=== PATIENT | male | born 1980 | race Caucasian/White ===

== ENCOUNTER 2022-09-22 16:12 | Outpatient (CLI) | payer BC, SELFPAY ==
--- NOTE | ~2022-09-22 | XR_ITS ---
EXAM: XR sinus min 3V DATE: 09/22/2022 16:28 HISTORY: chronic lt side drainage . COMPARISON: None available. FINDINGS: Normal mineralization. No fracture or dislocation. No lytic or blastic lesion. Opacificati on in the left frontal, ethmoid and maxillary sinuses. No erosion or periosteal change. Soft tissues within normal limits. IMPRESSION: Likely paranasal sinus disease in an OMU pattern, consider CT of the sinuses for further evaluation. Reviewed, dictated and finalized at location K. ESTING CONTRACTOR IMPRESSION: Likely paranasal sinus disease in an OMU pattern, consider CT of th e sinuses for further evaluation.
== END 2022-09-22 16:13 | disposition home or self-care (01) ==
LOC: ANHBWCIMG 16:14
PROVIDERS: PCP Family Medicine; Visit Provider Family Medicine
DX: J32.9 Chronic sinusitis, unspecified (principal)
CPT/HCPCS: 70220

== ENCOUNTER 2023-04-23 15:24 | Outpatient (CLI) | payer OTHER, SELFPAY ==
--- NOTE | ~2023-04-23 | XR_ITS ---
EXAMINATION: XR wrist RT min 3V DATE: 04/23/2023 15:44 INDICATION: Unspecified injury of right wrist and hand. TECHNIQUE: 4 views of right wrist were obtained. COMPARISON: None. FINDINGS: There is a nondisplaced transverse fracture of scaphoid waist. Joint spaces are normal. IMPRESSION: 1. Nondisplaced transverse fracture of scaphoid waist. Reviewed, dictated and finalized at location E.
== END 2023-04-23 15:25 | disposition home or self-care (01) ==
LOC: ANHASCIMG 15:26 → ANHBWCIMG 15:29
PROVIDERS: PCP Family Medicine; Visit Provider Nurse Practitioner Adult Health
DX: S69.91XA Unspecified injury of right wrist, hand and finger(s), initial encounter (principal); X58.XXXA Exposure to other specified factors, initial encounter
CPT/HCPCS: 73110

== ENCOUNTER → 2023-08-04 14:58 | Outpatient (CLI) | payer OTHER, SELFPAY ==
--- NOTE | ~2023-08-04 | CT_ITS ---
EXAMINATION: CT sinus wo con DATE: 08/04/2023 15:09 INDICATION: Chronic sinusitis TECHNIQUE: Computed tomography (CT) of the paranasal sinuses was performed without intravenous contra st. The dose-length product was 416.73 mGy-cm. Automated exposure control and iterative reconstructio n technique were employed. COMPARISON: No prior studies for comparison. FINDINGS: There is mucosal thickening of the frontal, maxillary, sphenoid and ethmoid sinuses, more s o on the left. There is occlusion of the left ostiomeatal unit. Mastoids are pneumatized. IMPRESSION: 1. Severe sinusitis, more so on the left side with complete opacification of the left frontal, ethmoi d, sphenoid and maxillary sinuses. Reviewed, dictated and finalized at location L. IMPRESSION: 1. Severe sinusitis, more so on the left side with complete opacification of th e left frontal, ethmoid, sphenoid and maxillary sinuses.
== END ==
PROVIDERS: PCP Family Medicine; Visit Provider Otolaryngology
DX: J32.9 Chronic sinusitis, unspecified (principal)
CPT/HCPCS: 70486

== ENCOUNTER 2023-09-21 03:04 | Day surgery (SDC) | payer OTHER, SELFPAY ==
[2023-09-17 14:09] VITALS: BMI 27.0
--- NOTE | 2023-09-17 14:10 | PC.NURSE ---
Report to the Outpatient Waiting Room, entrance under the green pavilion located off [facility], at time _0600_ on date _[id number]_. Planned Procedure Time: _0730_. Time changes happen often and if your time is changed the preop area will call you the afternoon before. - You and your visitor will be asked to self-screen and do not enter if you have any COVID symptoms. - A mask is optional within the hospital at this time. Patients may have clear liquids (water, carbonated beverages, clear teas, apple juice) until 3 hours prior to surgery with a maximum of 20 ounces. - No food from midnight until time of surgery Take the following medications with a SIP of water the morning of surgery: ___Steroids if still taking. DO NOT STOP ANY OF YOUR OTHER PRESCRIPTION MEDICATIONS PRIOR TO SURGERY ?EXCEPT THE FOLLOWING Medications to discontinue per physician Stop supplements now. Date to take last dose Please no make-up, nail malay, hairspray, perfume, deodorant, or body powder the day of surgery. No jewelry (including any body piercings) or valuables the day of surgery, leave them at home. Please take a shower or bath the night before, or the morning of, surgery with an antibacterial soap. Wear comfortable, loose fitting clothing. - Jewelry must be removed prior to entering the operating room. Rings and piercings that are not removed may be cut off. - The hospital will not accept responsibility for valuables. - Please leave all valuables, including medications, at home the day of surgery. If you are going home after surgery, a licensed fire truck driver must drive you home. - NO public transportation without another adult if you receive anesthesia. - We recommend that an adult stay with you for 24 hours following discharge. - We also recommend that you do not drive, make important decision, drink alcoholic beverages, or take any drugs that were not prescribed by your health care provider for at least 24 hours after your discharge time. Follow any additional instructions given to you from your surgeon. If you or anyone in your household have experienced Covid symptoms in the past week, please notify your surgeon or the nurse liaison at the phone number below for possible testing. Telephone instructions given to __Eric__and asked if any additional questions and then verbalized understanding. Patient advised to call surgeon office or pre surgery nurse liaison [phone] if any additional questions.
--- NOTE | 2023-09-20 15:21 | PM.IMHP ---
H&P: HPI History of Present Illness Date/Time: 09/20/23 15:21 Chief Complaint: Chronic sinusitis , septal deviation, Narrative: planned procedure Review of Systems Review of Systems: All systems reviewed & are unremarkable except as noted in HPI and below [facility] Past Medical History Medical History Fracture of scaphoid of right wrist April 2023 - waist fracture Social History Social History Smoking status: Never smoker Alcohol intake: never Substance use: never Lack of Transportation: No Lack of Food: Never True Current Housing: I Have Housing Concerned About Future Housing: No Difficulty Paying Gas/Electric Bills: No Difficulty Paying for Meds: No Currently Unemployed: No Education: Bachelor's Degree Difficulty w/ Childcare or Family Care: No Living arrangements: with family 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 Spiritual care concerns: No Meds Home Medications and Allergies Home Medications Medication Instructions Recorded Confirmed Type fluticasone propionate 50 1 - 2 spray intranasal BID #16 mL 05/14/23 05/14/23 Rx mcg/actuation nasal spray,suspension (Flonase Allergy Relief) doxycycline hyclate 100 mg capsule 100 mg PO Q12H 18 days #36 caps 09/16/23 09/16/23 Rx prednisone 10 mg tablet 10 mg PO .daily #4 tabs 09/16/23 09/16/23 Rx Allergies Allergy/AdvReac Type Severity Reaction Status Date / Time No Known Allergies Allergy Verified 09/17/23 14:01 Assessment and Plan Assessment and plan (1) Hypertrophy of both inferior nasal turbinates: Code(s): J34.3 - Hypertrophy of nasal turbinates Status: Acute (2) Nasal septal deviation: Code(s): J34.2 - Deviated nasal septum Status: Acute (3) Chronic sinusitis: Code(s): J32.9 - Chronic sinusitis, unspecified Status: Acute Plan bilateral sinus surgery including left-sided image guided endoscopic maxillary antrostomy tissue removal total ethmoidectomy frontal sinusotomy sphenoidotomy , Right sphenoidotomy. left middle turbinectomy, endoscopic assisted septoplasty, inferior turbinate reduction bilaterally with outfracture. Risks were discussed including bleeding infection damage to any structure of the clavicles myself demonstrating structure the induction and maintenance of anesthesia including vocal cord paralysis. Blindness change in vision CSF leak brain brain damage septal perforation need for time off work time off school need for further procedures failure to resolve symptoms need for dental evaluation possible tooth extraction. Patient voiced understanding to these risks and agreed. Dental issues would not be a risk potential adjunct.
[2023-09-21] VITALS (13 sets, daily range): BP systolic 114–135; BP diastolic 68–89; PULSE 61–77; RESP 12–16; TEMP 36.5; O2SAT 95–100
[2023-09-21] MEDS: ACETAMINOPHEN 500 MG TABLET 1000 MG PO (06:22)
--- NOTE | 2023-09-21 07:20 | P.PNAN_ITS ---
Anes - Initial Pre Proc Eval Procedure: Operation Date: 09/21/23 07:30 Proposed Procedures p Image Guided Left Side Maxillary Antrostomy with Tissue Removal, Left Side Total Ethmoidectomy, Left Side Frontal Sinusotomy, Left Side Middle Turbinectomy, Bilateral Sphenoidotomy - Magan Alcala MD s Endoscopic Septoplasty - Magan Alcala MD Date/Time: 09/21/23 07:20 Surgeon: Magan Alcala MD Pre Op Diagnosis: Septal Dev, Chr. Sinusitis Patient Data Age: 43 Gender: M Height: 1.7 m Weight: 81 kg Last Vital Signs Temp 36.5 C 09/21/23 06:53 Pulse 69 09/21/23 06:53 Resp 16 09/21/23 06:53 BP 135/80 09/21/23 06:53 Pulse Ox 98 09/21/23 06:53 O2 Del Method Room Air 09/21/23 06:53 Allergies Allergy/AdvReac Type Severity Reaction Status Date / Time No Known Allergies Allergy Verified 09/21/23 06:17 Home Medications Medication Instructions Recorded Confirmed Type doxycycline hyclate 100 mg capsule 100 mg PO Q12H 18 days #36 caps 09/16/23 09/16/23 Rx Patient hx anesthesia problems: none Family hx anesthesia problems: none Results Review: All pre-operative results and documents have been reviewed as part of the pre- operative evaluation. 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 Informed Consent: The patient's anesthetic plan and its attendant risks and benefits were discussed with the patient/family/POA. Questions were solicited and answers provided to the satisfaction of the patient/family/POA.
--- NOTE | 2023-09-21 07:20 | WPDHPUPDATE1 ---
History and Physical Update Update Date/Time: 09/21/23 07:20 History and Physical has been reviewed, including an updated exam of the patient. There are NO changes in the patient's condition. Risks, benefits, and alternatives have been discussed and questions answered. Patient agrees to proceed with procedure.
[2023-09-21] MEDS: LACTATED RINGERS 1,000 ML 30 ML IV CONT ×3 (07:29→12:56)
[2023-09-21] MEDS: ceFAZolin 2 GM/D5W 50 ML 2 GM/50 ML BAG IVPB (07:33)
[2023-09-21] MEDS: OXYMETAZOLINE HCL 0.05% NAS 15 ML BTL (*BKC) 1 SPRAY NASAL (08:10)
[2023-09-21] MEDS: LIDO 1%/EPINEPHRINE 1:100,000 50 ML VIAL 10 ML INFILTRATE (08:10)
--- NOTE | 2023-09-21 08:41 | SUR.OPER ---
Cultures x 2 sent with MARYELLEN Lamas and received in pathology [facility]
--- NOTE | 2023-09-21 12:23 | W.PM.PROC2 ---
Procedure Note - Detailed Date of Procedure 09/21/23 Pre-op Diagnosis Septal Dev, Chr. Sinusitis Post-op Diagnosis Same Procedure Performed Left-sided image guided endoscopic maxillary antrostomy tissue removal, frontal sinusotomy balloon , total ethmoidectomy ,sphenoidotomy with tissue removal, right-sided endoscopic image guided sphenoidotomy ,so left side all the sinuses right side just the sphenoid, endoscopic assisted septoplasty. Inferior turbinate outfracture bilaterally Surgeon Magan Alcala MD Anesthesia General Indications see above Findings copious amounts of purulence and infected tissue all the aforementioned sinuses. Severe left septal deviation going into the maxillary sinus. Large turbinates that needed to be outfractured for access bilaterally. Excessive bleeding about 500 cc. Description of Procedure Patient identified. Patient brought to the operating room. Time-out performed. General anesthesia induced. Patient prepped endotracheal tube secured the airway. Patient prepped draped positioned procedure confirmed 2nd time-out performed. Image guidance initiated confirmed. Afrin-soaked pledgets placed for months. Total 10 cc 1% lidocaine 100,000 parts epinephrine injected bilateral nasal septum inferior turbinates. Inferior turbinates outfractured with [place] elevator. Nasal septum [place] incision made left side left nasal flap the nasal septal flap elevated. Perforation over the spur. Deviated septum removed Brandi forceps Isaac Salomon forceps osteotome. Septum closed anteriorly for interrupted 5 0 fast gut sutures. Maxillary antrostomy performed with image guided microdebrider straight through cut backbiter double ball tip probe ethmoids performed with image guidance Kerrison microdebrider. Sphenoidotomy performed with sphenoid punch small Kerrison larger Kerrison and image guided microdebrider. Frontal sinusotomy not able to perform because of blood loss as able put a suction there. I used a balloon balloon dilated 3 times. A propel stent. Right-sided sphenoidotomy performed the image guidance straight through cut sorry Kerrison sphenoid punch. No pack placed bilaterally wound copiously irrigated. Honestly about 500 cc of blood loss. Everything kept oozing. Blood was controlled with suction Bovie Nova pack FloSeal. Farley splints were placed and the procedure after the Nova pack was placed bilaterally Farley splints were sutured anteriorly using 3-0 mattress suture. Estimated Blood Loss 500 Drains No Packing Yes Pathology None sent Complications No immediate complications Condition Stable Disposition PACU [facility] Billing Surgery - Charge Forward: Surgery Billing
== END 2023-09-21 16:16 | disposition home or self-care (01) ==
PROVIDERS: PCP Family Medicine; Visit Provider Otolaryngology
PROC: (CPT 31267; principal; 2023-09-21 07:30)
PROC: (CPT 30520; 2023-09-21 07:30)
DX: J32.9 Chronic sinusitis, unspecified (principal); J34.2 Deviated nasal septum; J34.3 Hypertrophy of nasal turbinates
CPT/HCPCS: 31267; 31296; 31259; 31287; 30520; 30930; 61782; 87070; 87075; 87076; 87205; A9270; C1726; C2625; J0690; J1100; J1170; J2250; J2405; J2704; J2710; J7040; J7120

== ENCOUNTER 2023-11-05 19:16 | Outpatient (NON) | payer OTHER, SELFPAY | END 2023-11-05 19:17 | disposition home or self-care (01) | LOC: ANHLAB 19:18 | PROVIDERS: PCP Family Medicine; Visit Provider Otolaryngology | DX: J32.9 Chronic sinusitis, unspecified (principal) | CPT/HCPCS: 87070; 87075; 87205 ==

== ENCOUNTER 2024-12-27 16:17 | Outpatient (CLI) | payer OTHER, SELFPAY ==
[2024-12-27 19:39] LABS: Alanine Aminotransferase 21 U/L (6-50); Albumin Level 4.3 g/dL (3.5-5.1); Alkaline Phosphatase 71 U/L (38-126); Anion Gap 9 mmol/L (4-12); Aspartate Amino Transferase 31 U/L (17-59); Bilirubin,Total 0.4 mg/dL (0.2-1.3); Blood Urea Nitrogen 18 mg/dL (9-20); Calcium 8.9 mg/dL (8.4-10.2); Carbon Dioxide 31 mmol/L (22-30); Chloride 101 mmol/L (98-107); Cholesterol 215 mg/dL (0-200); Estimated Glomerular Filt Rate > 60; Glucose 84 mg/dL (65-110); HDL Direct 36 mg/dL; Potassium 4.1 mmol/L (3.4-5.0); Sodium 141 mmol/L (137-145); Triglycerides 357 mg/dL (<150)
[2024-12-27 19:50] LABS: LDL Cholesterol Direct 125 mg/dL
== END 2024-12-27 16:18 | disposition home or self-care (01) ==
LOC: ANHBWCLAB 16:18
PROVIDERS: PCP Nurse Practitioner Adult Health; Visit Provider Nurse Practitioner Adult Health
DX: Z13.9 Encounter for screening, unspecified (principal)
CPT/HCPCS: 36415; 80053; 80061

== ENCOUNTER 2025-03-16 09:59 | Outpatient (CLI) | payer OTHER, SELFPAY ==
--- NOTE | ~2025-03-16 | XR_ITS ---
XR abdomen/kub 1V 03/16/2025 10:11 INDICATION: Diarrhea TECHNIQUE: KUB COMPARISON: No prior studies for comparison. FINDINGS: Bowel gas pattern is normal. There is no evidence of free air, mass, organomegaly, ascites or obstruction. There is a probable left renal stone. There are pelvic phleboliths. The bones appear intact. IMPRESSION: 1: Probable left nephrolithiasis. Reviewed, dictated and finalized at location A.
--- OUTSIDE RECORDS SUMMARY | 2025-03-16 10:54 | XMS_ITS ---
Author Organization [facility] [place] ([address]) Address [address] [facility] [address] [place] [address] Care Team Providers Care Agriculture Engineer Name Role Phone Deondre Lul Primary Care Provider Unavailabl e Belen Prince Unavailable [phone] ZZ-Migration, Provider Unavailable Unavailab le REASON FOR VISIT [facility] Conversion Encounter Medications Medication SIG (Take, Route, Frequency, Duration) Notes Start Date End Date Status ZyrTEC Allergy 10 MG 1 tab(s) orally once a day 11/05/2022 Active Fluticasone Furoate 27.5 MCG/SPRAY 1 spray(s) intranasally once a day for 30 day(s) 11/05/2022 Active NASAL WASHES N/A DIRECTED INTRANASALLY NEEDED for 30 *Please review for potential replacement for e-prescription and drug interaction check* 11/05/2022 Active Encounters Encounter Location Date Provider Diagnosis [facility] - [address] [address] 03/26/2024 Provider ZZ-Migration Allergic rhinitis due to pollen J30.1 Assessments Encounter Date Diagnosis (ICD Code) Assessment Notes Treatment Notes Treatment Clinical Notes Section Notes 03/26/2024 Allergic rhinitis due to pollen (ICD-10 - J30.1) Plan Of Treatment Medication Medication Name Sig Start Date Stop Date Notes ZyrTEC Allergy 10 MG 1 tab(s) orally onc e a day 11/05/2022 Fluticasone Furoate 27.5 MCG/SPRAY 1 spray(s) intranasally once a day for 30 day(s) 11/05/2022 NASAL WASHES N/A DIRECTED INTRANASALLY NEEDED for 30 11/05/2022 *Please review for potential replacement for e-prescription and drug interaction check* Progress Notes * Brennen FERREIRADOB:1980 (44 yo M)Acc No.[id number]:03/26/2024 Patient: Blayne MENDOSAJEREMY Brennen Provider: Blayne Castro :1980 A ge:43 Y S ex:Male Date:03/26/2024 Address:[facility] [address], [facility] Pcp:Lul Mendosa Subjective: * Chief Complaints: * 1 . Multum To Med[facility]pan Conversion Encounter. * Medical History: Objective: * Vitals: Assessment: * Assessment: 1. A llergic rhinitis due to pollen - J30.1 (Primary) Plan: * Treatment: * Billing Information: * Visit Code: * Procedure Codes: * Electronic signature of Prov phoenix HuangZ-Migration on 03/16/2025 at 10:54 AM CDT Sign off status: Pending * Provider: Blayne Castro Date: 0 03/26/2024 Generated for Roberta garcia/Ramona/Dashaitting on: 03/16/2025 10:54 AM CDT
--- OUTSIDE RECORDS SUMMARY | 2025-03-16 10:54 | XMS_ITS | Clinical Summary ---
Author Organization [facility] Address [address] [place] [address] Care Team Providers Care Preassembler And Inspector Name Role Phone Lul Mendosa MD Primary Care Provider [phone] Allergies No known active allergies Medications No known medications Active Problems No known active problems Family History Medical History Relation Name Comments No Known Problems Father No Known Problems Mother Relation Name Status Comments Father Mother Social History Tobacco Use Types Packs/Day Years Used Date Smoking Tobacco: Never Smokeless Tobacco: Never Tobacco Cessation:Counseling Given: Not Answered Sex and Gender Information Value Date Recorded Sex Assigned at Not on file Legal Sex Male 8:31 AM CDT Gender Identity Not on file Sexual Orientation Not on file Obstetrics History Last Filed Vital Signs Vital Sign Reading Time Taken Comments Blood Pressure - - Pulse - - Temperature - - Respiratory Rate - - Oxygen Saturation - - Inhaled Oxygen Concentration - - Weight 79.4 kg (175 lb) 05/08/2023 9:11 AM CDT Height 170.2 cm (5' 7) 05/08/2023 9:11 AM CDT Body Mass Index 27.41 05/08/2023 9:11 AM CDT Plan of Treatment Health Maintenance Due Date Last Done Comments Depression Screening 1980 Hepatitis C Screening 1980 DTaP/Tdap/Td Vaccine (1 - Tdap) 1993 Varicella Vaccines (1 of 2 - 13+ 2-dose series) 1995 Hepatitis B Screening 2000 Regular Well Visit/Exam 18-64 2000 Influenza Vaccine (Season Ended) 2025 HPV Vaccines Aged Out No longer eligi ble based on patient's age to complete this topic Pneumococcal vaccine <65 Aged Out No longer eligible based on patient's age to complete this topic Insurance [facility] HMO/PPO Address: [place] [address] [facility] HMO/PPO Address: [place] [address] [facility] WORKERS COMPENSATION GENERIC Care Teams Preassembler And Inspector Relationship Specialty Start Date End Date Lul Mendosa MD PCP - General Family Practice 05/07/23
--- OUTSIDE RECORDS SUMMARY | 2025-03-16 10:54 | XMS_ITS | Patient Health Record ---
Author Organization [facility] [place] ([address]) Address [address] [place] [address] Care Team Providers Care Security Lead Name Role Phone Deondre Lul Primary Care Provider Unavailabl Belen Galvan Unavailable [phone] ZZ-Migration, Provider Unavailable Unavailab le Allergies No Known Allergies Reason For Referral No Information Medications Medication SIG (Take, Route, Frequency, Duration) Notes Start Date End Date Status ZyrTEC Allergy 10 MG 1 tab(s) orally once a day 11/05/2022 Active Fluticasone Furoate 27.5 MCG/SPRAY 1 spray(s) intranasally once a day for 30 day(s) 11/05/2022 Active NASAL WASHES N/A DIRECTED INTRANASALLY NEEDED for 30 *Please review for potential replacement for e-prescription and drug interaction check* 11/05/2022 Active ZYRTEC 10 mg 1 tab(s) orally once a day 11/05/2022 Active FLUTICASONE NASAL 27.5 mcg/inh 1 spray(s) intranasally once a day for 30 day(s) 11/05/2022 Active Social History Tobacco Use: Social History Observation Description Date Details (start date - stop date) Never Smoker NA - NA Smoking Smart Form: Question Answer Notes Are you a: never smoker Problems Problem Type SNOMED Code ICD Code Onset Dates Problem Status W/U Status Risk Notes Problem Chronic allergic conjunctivitis (34611843) Other chronic allergic conjunctivitis (H10.45) Active confirmed Problem Allergic rhinitis caused by pollen (disorder) (46263240) Allergic rhinitis due to pollen (J30.1) Active confirmed Problem Allergic rhinitis (65632562) Other allergic rhinitis (J30.89) Active confirmed Problem Allergic rhinitis caused by animal hair and dander (409460161740687) Allergic rhinitis due to animal (cat) (dog) hair and dander (J30.81) Active confirmed Encounters Encounter Location Date Provider Diagnosis [facility] - [address] [address] 03/26/2024 Provider Robert Allergic rhinitis due to pollen J30.1 Assessments Encounter Date Diagnosis (ICD Code) Assessment Notes Treatment Notes Treatment Clinical Notes Section Notes 03/26/2024 Allergic rhinitis due to pollen (ICD-10 - J30.1) Plan Of Treatment No Information Insurance Providers Payer Name Payer Address Payer Phone Subscriber Number Group Number Insured Name Patient Relationship to Insured Coverage Start Date Coverage End Date [facility] [address] [address] [place], [place] [id number] Brennen Martin Self - patient is the insured Medical (General) History Medical History History ICD Code Chronic rhinitis J31.0 Surgical History Surgery Date(Month/Year) [place] teeth extraction 07/2001
--- OUTSIDE RECORDS SUMMARY | 2025-03-16 10:54 | XMS_ITS | Clinical Summary ---
Author Organization [facility] [place] Address [address] [facility] [place] [address] Care Team Providers Care Seafood And Service Meat Manager Name Role Phone Unavailable Primary Care Provider Unavailabl e Allergies No known active allergies Medications No known medications Active Problems No known active problems Social History Tobacco Use Types Packs/Day Years Used Date Smoking Tobacco: Never Smokeless Tobacco: Never Sex and Gender Information Value Date Recorded Sex Assigned at Not on file Legal Sex Male 10:56 AM COSTUMED CHARACTER ENTERTAINER Gender Identity Not on file Sexual Orientation Not on file Last Filed Vital Signs Vital Sign Reading Time Taken Comments Blood Pressure 120/72 2023 3:30 PM CDT Pulse 65 2023 3:30 PM CDT Temperature 36.4 C (97.5 F) 2023 3:30 PM CDT Respiratory Rate 16 2023 3:30 PM CDT Oxygen Saturation 96% 2023 3:30 PM CDT Inhaled Oxygen Concentration - - Weight 78.5 kg (173 lb) 2023 3:30 PM CDT Height 172.2 cm (5' 7.8) 2023 3:30 PM CDT Body Mass Index 26.46 2023 3:30 PM CDT Plan of Treatment Health Maintenance Due Date Last Done Comments DTAP/TDAP/TD VACCINES (1 - Tdap) 2001 HEPATITIS B VACCINES (1 of 3 - 19+ 3-dose series) 2001 INFLUENZA VACCINE (#1) 2024 HPV VACCINES Aged Out No longer eligi ble based on patient's age to complete this topic Insurance [id number] [place] [id number] [facility] CHOICE
--- OUTSIDE RECORDS SUMMARY | 2025-03-16 10:54 | XMS_ITS | Referral Summary ---
Author Organization [facility] Address [address] [place] [address] Care Team Providers Care Circular Knife Cutter Machine Name Role Phone Lul Mendosa MD Primary Care Provider [phone] Allergies No known active allergies Medications No [...] 05/08/2023 9:11 AM CDT Plan of Treatment Not on file Insurance [facility] WORKERS COMPENSATION GENERIC Care Teams Circular Knife Cutter Machine Relationship Specialty Start Date End Date Lul Mendosa MD PCP - General Family Practice 05/07/23
[2025-03-16 19:18] LABS: Add Urine Microscopic? YES; Appearance Urine Clear (Clear); Bacteria Urine None Seen /hpf; Bilirubin Urine Negative (Negative); Blood Urine 1+ (Negative); Color Urine Yellow (Yellow); Glucose Urine UA Negative (Negative); Ketones Urine Negative (Negative); Leukocyte Esterase Ur Negative LEU/UL (Negative); Nitrate Urine Negative (Negative); Non Pathogenic Casts 0-2; Protein Urine Negative (Negative); Specific Grav Ur 1.022 (1.001-1.035); Squamous Epithelial Cell Urine None Seen /hpf (Few); Urobilinogen Urine 0.2 mg/dL (<2.0); WBC Urine 0-5 /hpf (0-3); pH Urine 6.5 (5.0-9.0)
== END 2025-03-16 10:00 | disposition home or self-care (01) ==
LOC: ANHBWCLAB 10:00
PROVIDERS: PCP Nurse Practitioner Adult Health; Visit Provider Nurse Practitioner Adult Health
DX: R39.9 Unspecified symptoms and signs involving the genitourinary system (principal)
CPT/HCPCS: 74018; 81001; 87086